=== PATIENT | male | born 1985 ===

== ENCOUNTER → 2022-02-14 13:58 | Outpatient (BNVA) | payer MEDICARE, MEDICAID, SELFPAY | PROVIDERS: PCP Internal Medicine; Visit Provider Nurse Practitioner Family | DX: G40.909 Epilepsy, unspecified, not intractable, without status epilepticus (principal); F84.0 Autistic disorder; F84.9 Pervasive developmental disorder, unspecified; Z79.899 Other long term (current) drug therapy | CPT/HCPCS: 99212 ==